=== PATIENT | female | born 1950 | race African-American/Black ===

== ENCOUNTER 2018-07-06 12:32 | Inpatient (IN) | payer MEDICARE, MEDICAID ==
[~2018-07-06] VITALS: Ht 165.1 cm; Wt 74.4 kg
[~2018-07-06 12:32] MED LIST: AM10 PO; AMLO5TAB4 PO; ASPI-1159 PO; MOME13HF2 INH; OMEP20CA10 PO; QUET100T PO
[2018-07-06 14:48] LABS: HEMATOCRIT. 42.1 % (36.0-48.0); HEMOGLOBIN. 12.9 g/dL (12.0-16.0); MEAN CORPUSCULAR VOLUME 78.7 fL (81.0-99.0); RED BLOOD CELL COUNT 5.35 mill/uL (4.2-5.4); RED CELL DISTRIBUTION WIDTH 22.8 % (11.6-14.6)
[2018-07-06 15:09] LABS: PLATELET 370 x1000/uL (130-400)
[2018-07-06 15:10] LABS: MEAN PLATELET VOLUME 9.5 fl (7.4-10.4); PLATELET ESTIMATE NORMAL
[2018-07-06 15:29] LABS: CHLORIDE 108 mEq/L (98-107); INR 1.1; PARTIAL THROMBOPLASTIN TIME 25.9 sec (23.4-31.0); PROTHROMBIN TIME 11.1 sec (9.1-11.1)
[2018-07-06] MEDS ORDERED: FUROSEMIDE 40MG/4ML VIAL IVP NR (15:45)
[2018-07-06] MEDS ORDERED: MAGNESIUM/ALUMINUM HYDROXIDE/SIMETHICONE 30ML UDC PO PRN (17:30)
[2018-07-06] MEDS ORDERED: MORPHINE SULFATE 4 MG/ML CPJ (NOT FOR IM USE) IV PRN (17:30)
[2018-07-06] MEDS ORDERED: CLONIDINE 0.1MG TABLET PO PRN (17:30)
[2018-07-06] MEDS ORDERED: DIPHENHYDRAMINE 50MG/ML VIAL IV PRN (17:30)
[2018-07-06] MEDS ORDERED: NITROGLYCERIN 0.4MG TABLET SL SL PRN (17:30)
[2018-07-06] MEDS ORDERED: TRAMADOL 50MG TABLET PO PRN (17:30)
[2018-07-06] MEDS ORDERED: GUAIFENESIN 200MG/10ML SUGAR FREE UDC PO PRN (17:30)
[2018-07-06] MEDS ORDERED: NA PHOS,M-B/NA PHOS,DI-BA ENEMA 118ML PR PRN (17:30)
[2018-07-06] MEDS ORDERED: IPRATROPIUM/ALBUTEROL 0.5-3(2.5)MG/3ML NEB INH PRN (17:30)
[2018-07-06] MEDS ORDERED: DOCUSATE SODIUM 100MG CAPSULE PO PRN (17:30)
[2018-07-06] MEDS ORDERED: LORAZEPAM 0.5MG TABLET PO PRN (17:30)
[2018-07-06] MEDS ORDERED: ONDANSETRON HCL 4MG/2ML INJ IV PRN (17:30)
[2018-07-06 17:42] LABS: CLARITY URINE CLEAR (CLEAR); COLOR URINE YELLOW (YELLOW); KETONES URINE NEGATIVE (NEGATIVE); LEUKOCYTE ESTERASE URINE NEGATIVE (NEGATIVE); NITRITE URINE NEGATIVE (NEGATIVE); OCCULT BLOOD URINE NEGATIVE (NEGATIVE); PROTEIN URINE NEGATIVE (NEGATIVE); SPECIFIC GRAVITY URINE 1.005 (1.005-1.030); UROBILINOGEN URINE 0.2 E.U./dL (0.2-1.0)
[2018-07-06 20:21] LABS: *BENZODIAZEPINES SCREEN URINE NEGATIVE (NEGATIVE); *COCAINE SCREEN URINE PRESUMTIVE POSITIVE (NEGATIVE); METHADONE URINE SCREEN NEGATIVE (NEGATIVE); OPIATES URINE SCREEN NEGATIVE (NEGATIVE)
[2018-07-06 20:22] LABS: *AMPHETAMINES SCREEN URINE NEGATIVE (NEGATIVE); *BARBITURATES SCREEN URINE NEGATIVE (NEGATIVE); CANNABINOID URINE SCREEN NEGATIVE (NEGATIVE); PHENCYCLIDINE URINE SCREEN NEGATIVE (NEGATIVE)
[2018-07-06 22:00] VITALS: BP 166/83
[2018-07-06] MEDS: GUAIFENESIN/DM 600MG/30MG ER TAB 12HR PO SCH (22:56)
[2018-07-06] MEDS: FUROSEMIDE 40MG/4ML VIAL IVP SCH (22:57)
[2018-07-06] MEDS: LISINOPRIL 20MG TABLET PO SCH (22:57)
[2018-07-06 23:00] VITALS: BP 159/86
[2018-07-06 23:02] VITALS: BP 147/83
[2018-07-07] VITALS (11 sets, daily range): BP systolic 119–162; BP diastolic 55–87
[2018-07-07] MEDS ORDERED: LEVOFLOXACIN 500MG PREMIX 100 ML IV NR
[2018-07-07] MEDS: ZOLPIDEM TARTRATE 5MG TABLET PO PRN (00:32)
[2018-07-07 00:50] LABS: CREATINE KINASE MB FRACTION 2.1 ng/mL (0.5-3.6)
[2018-07-07] MEDS: IPRATROPIUM/ALBUTEROL 0.5-3(2.5)MG/3ML NEB HHN SCH ×6 (00:51→20:35)
[2018-07-07 07:30] LABS: CREATINE KINASE MB FRACTION 2.4 ng/mL (0.5-3.6)
[2018-07-07] MEDS: GUAIFENESIN/DM 600MG/30MG ER TAB 12HR PO SCH ×2 (08:40→21:43)
[2018-07-07] MEDS: ASPIRIN 325MG EC TABLET PO SCH (08:40)
[2018-07-07] MEDS: ENOXAPARIN 40MG/0.4ML SYR SUBCUT SCH (08:40)
[2018-07-07] MEDS: FUROSEMIDE 40MG/4ML VIAL IVP SCH ×2 (08:40→21:44)
[2018-07-07] MEDS: FAMOTIDINE 20MG TABLET PO SCH (08:40)
[2018-07-07] MEDS: LISINOPRIL 20MG TABLET PO SCH ×2 (08:41→21:43)
[2018-07-07] MEDS ORDERED: INFLUENZA VIRUS VACCINE(AFLURIA) 0.5ML SYR IM ONE (10:00)
[2018-07-07] MEDS ORDERED: PNEUMOCOCCAL 23-VAL P-SAC VAC 0.5 ML IM ONE (10:00)
[2018-07-07 11:10] LABS: BG BASE EXCESS 6.2 mmol/L (-2.0-2.0); BG CARBOXYHEMOGLOBIN 1.4 % (0.5-1.5); BG DEOXYHEMOGLOBIN 4.3 % (0.0-5.0); BG HCO3 ACT 32.4 mmol/L (22.0-26.0); BG METHEMOGLOBIN 0.3 % (0.0-1.5); BG OXYGEN SATURATION 95.6 % (92.0-98.5); BG PH 7.396 (7.350-7.450); BG PO2 89.5 mmHg (75.0-100.0); BG SAMPLE SITE RIGHT BRACHIAL; BG TOTAL HEMOGLOBIN 12.6 g/dL (12.0-18.0); BG VENT MODE NASAL CANNULA
[2018-07-08] VITALS (12 sets, daily range): BP systolic 93–165; BP diastolic 48–87
[2018-07-08] MEDS: LEVOFLOXACIN 250MG PREMIX 50 ML IV SCH ×2 (00:10→21:23)
[2018-07-08] MEDS: IPRATROPIUM/ALBUTEROL 0.5-3(2.5)MG/3ML NEB HHN SCH ×7 (00:55→23:43)
[2018-07-08] MEDS: LISINOPRIL 20MG TABLET PO SCH ×2 (09:15→20:44)
[2018-07-08] MEDS: ASPIRIN 325MG EC TABLET PO SCH (09:15)
[2018-07-08] MEDS: GUAIFENESIN/DM 600MG/30MG ER TAB 12HR PO SCH ×2 (09:15→20:44)
[2018-07-08] MEDS: FUROSEMIDE 40MG/4ML VIAL IVP SCH ×2 (09:16→20:43)
[2018-07-08] MEDS: FAMOTIDINE 20MG TABLET PO SCH (09:16)
[2018-07-08] MEDS: ENOXAPARIN 40MG/0.4ML SYR SUBCUT SCH (09:16)
[2018-07-08] MEDS: SILDENAFIL CITRATE 20MG TABLET PO SCH ×2 (13:42→21:24)
[2018-07-08] MEDS: ACETAMINOPHEN 325MG TABLET PO PRN (15:24)
[2018-07-08] MEDS: ZOLPIDEM TARTRATE 5MG TABLET PO PRN (21:36)
[2018-07-09] VITALS (12 sets, daily range): BP systolic 97–129; BP diastolic 41–88
[2018-07-09] MEDS: IPRATROPIUM/ALBUTEROL 0.5-3(2.5)MG/3ML NEB HHN SCH ×5 (04:41→20:15)
[2018-07-09] MEDS: SILDENAFIL CITRATE 20MG TABLET PO SCH ×3 (06:00→21:35)
[2018-07-09] MEDS: LISINOPRIL 20MG TABLET PO SCH ×2 (10:24→21:35)
[2018-07-09] MEDS: ENOXAPARIN 40MG/0.4ML SYR SUBCUT SCH (10:24)
[2018-07-09] MEDS: GUAIFENESIN/DM 600MG/30MG ER TAB 12HR PO SCH ×2 (10:25→21:00)
[2018-07-09] MEDS: ASPIRIN 325MG EC TABLET PO SCH (10:25)
[2018-07-09] MEDS: FUROSEMIDE 40MG/4ML VIAL IVP SCH ×2 (10:25→21:35)
[2018-07-09] MEDS: FAMOTIDINE 20MG TABLET PO SCH (10:25)
[2018-07-09] MEDS ORDERED: GUAIFENESIN/CODEINE 100-10MG/5ML UDC PO PRN (15:45)
[2018-07-09] MEDS: PREDNISONE 20MG TABLET PO SCH (19:08)
[2018-07-09] MEDS: CEFTRIAXONE 1,000 MG in DEXTROSE 5% WATER 50 ML IV SCH (19:17)
[2018-07-09] MEDS ORDERED: LEVOFLOXACIN 250MG TABLET PO SCH (21:00)
[2018-07-09] MEDS: ZOLPIDEM TARTRATE 5MG TABLET PO PRN (21:35)
[2018-07-10] VITALS (12 sets, daily range): BP systolic 99–144; BP diastolic 52–74
[2018-07-10] MEDS: IPRATROPIUM/ALBUTEROL 0.5-3(2.5)MG/3ML NEB HHN SCH ×7 (00:16→23:48)
[2018-07-10] MEDS: SILDENAFIL CITRATE 20MG TABLET PO SCH ×3 (05:24→21:56)
[2018-07-10] MEDS: AZITHROMYCIN 500 MG TABLET PO SCH (09:11)
[2018-07-10] MEDS: ENOXAPARIN 40MG/0.4ML SYR SUBCUT SCH (09:11)
[2018-07-10] MEDS: LISINOPRIL 20MG TABLET PO SCH ×2 (09:11→21:56)
[2018-07-10] MEDS: ASPIRIN 325MG EC TABLET PO SCH (09:11)
[2018-07-10] MEDS: GUAIFENESIN/DM 600MG/30MG ER TAB 12HR PO SCH ×2 (09:11→21:55)
[2018-07-10] MEDS: ACETAMINOPHEN 325MG TABLET PO PRN (09:13)
[2018-07-10] MEDS: PREDNISONE 20MG TABLET PO SCH ×2 (09:13→17:40)
[2018-07-10] MEDS: FAMOTIDINE 20MG TABLET PO SCH (09:13)
[2018-07-10] MEDS: FUROSEMIDE 40MG/4ML VIAL IVP SCH ×2 (09:13→21:55)
[2018-07-10 12:40] LABS: BG BASE EXCESS 11.9 mmol/L (-2.0-2.0); BG CARBOXYHEMOGLOBIN 1.4 % (0.5-1.5); BG DEOXYHEMOGLOBIN 23.9 % (0.0-5.0); BG FRACTION INSPIRED OXYGEN 21; BG HCO3 ACT 37.1 mmol/L (22.0-26.0); BG METHEMOGLOBIN 0.4 % (0.0-1.5); BG OXYGEN SATURATION 75.7 % (92.0-98.5); BG OXYHEMOGLOBIN 74.3 % (94.0-97.0); BG PCO2 50.3 mmHg (35.0-45.0); BG PH 7.486 (7.350-7.450); BG PO2 41.1 mmHg (75.0-100.0); BG SAMPLE SITE RIGHT BRACHIAL; BG TOTAL HEMOGLOBIN 13.5 g/dL (12.0-18.0); BG VENT MODE ROOM AIR
[2018-07-10] MEDS ORDERED: LIDOCAINE HCL/PF 1% 2ML VIAL ONE ×2 (13:12→15:01)
[2018-07-10] MEDS: CEFTRIAXONE 1,000 MG in DEXTROSE 5% WATER 50 ML IV SCH (17:40)
[2018-07-10] MEDS: ZOLPIDEM TARTRATE 5MG TABLET PO PRN (21:55)
[2018-07-11] VITALS (13 sets, daily range): BP systolic 103–134; BP diastolic 47–72
[2018-07-11] MEDS: IPRATROPIUM/ALBUTEROL 0.5-3(2.5)MG/3ML NEB HHN SCH ×5 (04:17→21:06)
[2018-07-11] MEDS: SILDENAFIL CITRATE 20MG TABLET PO SCH ×3 (05:54→21:03)
[2018-07-11] MEDS: AZITHROMYCIN 500 MG TABLET PO SCH (09:06)
[2018-07-11] MEDS: FAMOTIDINE 20MG TABLET PO SCH (09:06)
[2018-07-11] MEDS: ACETAMINOPHEN 325MG TABLET PO PRN ×2 (09:06→21:02)
[2018-07-11] MEDS: PREDNISONE 20MG TABLET PO SCH ×2 (09:07→17:30)
[2018-07-11] MEDS: GUAIFENESIN/DM 600MG/30MG ER TAB 12HR PO SCH ×2 (09:08→21:09)
[2018-07-11] MEDS: ASPIRIN 325MG EC TABLET PO SCH (09:08)
[2018-07-11] MEDS: LISINOPRIL 20MG TABLET PO SCH ×2 (09:08→21:00)
[2018-07-11] MEDS: ENOXAPARIN 40MG/0.4ML SYR SUBCUT SCH (09:13)
[2018-07-11] MEDS: FUROSEMIDE 40MG/4ML VIAL IVP SCH ×2 (13:16→21:01)
[2018-07-11] MEDS: CEFTRIAXONE 1,000 MG in DEXTROSE 5% WATER 50 ML IV SCH (17:30)
[2018-07-11] MEDS ORDERED: ZOLPIDEM TARTRATE 5MG TABLET PO PRN (20:15)
[2018-07-11] MEDS: BUDESONIDE 0.5MG/2ML NEB HHN SCH (21:06)
[2018-07-12] VITALS (10 sets, daily range): BP systolic 97–125; BP diastolic 56–81
[2018-07-12] MEDS: IPRATROPIUM/ALBUTEROL 0.5-3(2.5)MG/3ML NEB HHN SCH ×5 (00:48→16:08)
[2018-07-12] MEDS: SILDENAFIL CITRATE 20MG TABLET PO SCH ×2 (05:57→15:18)
[2018-07-12] MEDS: BUDESONIDE 0.5MG/2ML NEB HHN SCH (08:12)
[2018-07-12] MEDS: PREDNISONE 20MG TABLET PO SCH ×2 (08:28→18:09)
[2018-07-12] MEDS: ASPIRIN 325MG EC TABLET PO SCH (08:28)
[2018-07-12] MEDS: LISINOPRIL 20MG TABLET PO SCH (08:29)
[2018-07-12] MEDS: GUAIFENESIN/DM 600MG/30MG ER TAB 12HR PO SCH (08:29)
[2018-07-12] MEDS: AZITHROMYCIN 500 MG TABLET PO SCH (08:29)
[2018-07-12] MEDS: FAMOTIDINE 20MG TABLET PO SCH (08:29)
[2018-07-12] MEDS: FUROSEMIDE 40MG/4ML VIAL IVP SCH (08:29)
[2018-07-12] MEDS: ENOXAPARIN 40MG/0.4ML SYR SUBCUT SCH (08:29)
[2018-07-12] MEDS: CEFTRIAXONE 1,000 MG in DEXTROSE 5% WATER 50 ML IV SCH (18:08)
== END 2018-07-12 20:20 | DRG 917 ==
LOC: ER 13:35 → 5EST 16:26 → EDBEDREQ 16:31 → SUPCPDRO 17:24 → ENRESERV 19:51 → 5EST 22:03 → 6EST 07-12 12:41
PROVIDERS: ADMIT Internal Medicine; ATTEND Internal Medicine
PROC: 5A09357 Assistance with Respiratory Ventilation, Less than 24 Consecutive Hours, Continuous Positive Airway Pressure (ICD-10-PCS; principal; 2018-07-06)
PROC: 5A09357 Assistance with Respiratory Ventilation, Less than 24 Consecutive Hours, Continuous Positive Airway Pressure (ICD-10-PCS; 2018-07-07)
DX: T40.5X1A Poisoning by cocaine, accidental (unintentional), initial encounter (principal); N17.0 Acute kidney failure with tubular necrosis; J96.00 Acute respiratory failure, unspecified whether with hypoxia or hypercapnia; I50.43 Acute on chronic combined systolic (congestive) and diastolic (congestive) heart failure; E44.0 Moderate protein-calorie malnutrition; I82.509 Chronic embolism and thrombosis of unspecified deep veins of unspecified lower extremity; Z99.11 Dependence on respirator [ventilator] status; J68.0 Bronchitis and pneumonitis due to chemicals, gases, fumes and vapors; I11.0 Hypertensive heart disease with heart failure; R19.7 Diarrhea, unspecified; J44.9 Chronic obstructive pulmonary disease, unspecified; E66.9 Obesity, unspecified; F14.90 Cocaine use, unspecified, uncomplicated; F17.210 Nicotine dependence, cigarettes, uncomplicated; I27.29 Other secondary pulmonary hypertension; Z79.899 Other long term (current) drug therapy; Z87.01 Personal history of pneumonia (recurrent); Z98.84 Bariatric surgery status; Z99.81 Dependence on supplemental oxygen; Z68.27 Body mass index [BMI] 27.0-27.9, adult
CPT/HCPCS: 36415; 36600; 71045; 76770; 80048; 80061; 80305; 82375; 82550; 82553; 82805; 83036; 83880; 84484; 87804; 90686; 93005; 93306; 93970; 94640; 94660; 96374; 97162; 97166; 99291; J0696; J1650; J1940; J1956; J2270; J3490; J7050; J7060; J7512; J7620; J7626

== ENCOUNTER 2018-08-07 18:55 | Inpatient (IN) | payer MEDICARE, MEDICAID ==
[~2018-08-07] VITALS: Ht 167.6 cm; Wt 76.2 kg
[2018-08-07 20:39] LABS: CHLORIDE 106 mEq/L (98-107)
[2018-08-07 20:50] LABS: BASOPHILS % 0.8 % (0.0-2.0); EOSINOPHILS % 0.2 % (0.0-5.0); HEMATOCRIT. 42.9 % (36.0-48.0); HEMOGLOBIN. 13.1 g/dL (12.0-16.0); LYMPHOCYTES % 8.5 % (20.0-50.0); MEAN CORPUSCULAR HEMOGLOBIN 24.1 pg (28.0-32.0); MEAN CORPUSCULAR VOLUME 79.2 fL (81.0-99.0); MEAN PLATELET VOLUME 8.7 fl (7.4-10.4); MONOCYTES % 4.2 % (2.0-8.0); NEUTROPHILS % 86.3 % (40.0-76.0); PLATELET 230 x1000/uL (130-400); RED BLOOD CELL COUNT 5.42 mill/uL (4.2-5.4); RED CELL DISTRIBUTION WIDTH 23.6 % (11.6-14.6)
[2018-08-07] MEDS ORDERED: SODIUM POLYSTYRENE SULFONATE 15 G/60 ML BOT PO ONE ×2 (21:00→21:30)
[2018-08-07 21:03] LABS: PLATELET ESTIMATE NORMAL
[2018-08-07] MEDS ORDERED: SODIUM CHLORIDE 0.45% 1,000 ML IV SCH (21:17)
[2018-08-07] MEDS ORDERED: ONDANSETRON HCL 4MG/2ML INJ IV PRN (21:30)
[2018-08-07] MEDS ORDERED: ACETAMINOPHEN 325MG TABLET PO PRN (21:30)
[2018-08-07] MEDS ORDERED: MAGNESIUM/ALUMINUM HYDROXIDE/SIMETHICONE 30ML UDC PO PRN (21:30)
[2018-08-07] MEDS ORDERED: CLONIDINE 0.1MG TABLET PO PRN (21:30)
[2018-08-07] MEDS ORDERED: GUAIFENESIN 200MG/10ML SUGAR FREE UDC PO PRN (21:30)
[2018-08-07] MEDS ORDERED: DOCUSATE SODIUM 100MG CAPSULE PO PRN (21:30)
[2018-08-08 06:18] LABS: HEMATOCRIT. 39.8 % (36.0-48.0); HEMOGLOBIN. 12.1 g/dL (12.0-16.0); MEAN CORPUSCULAR HEMOGLOBIN 24.3 pg (28.0-32.0); MEAN CORPUSCULAR VOLUME 79.5 fL (81.0-99.0); MEAN PLATELET VOLUME 8.8 fl (7.4-10.4); PLATELET 172 x1000/uL (130-400); RED CELL DISTRIBUTION WIDTH 23.1 % (11.6-14.6)
[2018-08-08 06:20] LABS: CHLORIDE 109 mEq/L (98-107)
[2018-08-08 06:48] LABS: PLATELET ESTIMATE NORMAL
[2018-08-08 08:40] VITALS: BP 127/69
[2018-08-08] MEDS ORDERED: AMLODIPINE 10MG TABLET PO SCH (09:00)
[2018-08-08 09:47] VITALS: BP 127/69
[2018-08-08] MEDS ORDERED: ASA5EC MT (10:13)
[2018-08-08] MEDS ORDERED: DIPH50CA47 MT (10:13)
[2018-08-08] MEDS ORDERED: DOCU-150 MT (10:16)
[2018-08-08] MEDS ORDERED: LISI-604 MT (10:16)
[2018-08-08] MEDS ORDERED: REV20 MT (10:16)
[2018-08-08] MEDS ORDERED: FAMO20TA8 MT (10:16)
[2018-08-08] MEDS ORDERED: BISA10SU62 RC (10:16)
[2018-08-08] MEDS ORDERED: FURO40TA5 MT (10:16)
[2018-08-08] MEDS ORDERED: P20 MT (10:16)
[2018-08-08 10:55] VITALS: BP 127/69
[2018-08-08 12:00] VITALS: BP 122/73
== END 2018-08-08 12:20 | DRG 641 ==
LOC: ER 18:55 → 8WST 21:23 → EDBEDREQSVC 22:43 → ENRESERV 08-08 07:11
PROVIDERS: ADMIT Hospitalist; ATTEND Hospitalist
DX: E87.5 Hyperkalemia (principal); F20.9 Schizophrenia, unspecified; F31.9 Bipolar disorder, unspecified; J44.9 Chronic obstructive pulmonary disease, unspecified; E86.0 Dehydration; I11.0 Hypertensive heart disease with heart failure; I50.9 Heart failure, unspecified; Z98.84 Bariatric surgery status
CPT/HCPCS: 36415; 84132; 93005; 99285